=== PATIENT | female | born 1965 | race Caucasian/White ===

== ENCOUNTER 2016-11-27 15:10 | Emergency (ER) | payer BC ==
[2016-11-27] MEDS ORDERED: Sodium Chloride 0.9% 10 ML Syringe FLUSH PRN (15:25)
[2016-11-27] MEDS ORDERED: Sodium Chloride 0.9% 2.5 ML Syringe FLUSH PRN (15:25)
--- NOTE | 2016-11-27 15:25 | EDM.PDOC ---
ED HPI SEIZURE COMPLAINT - General Chief Complaint: Neuro Symptoms/Deficits Stated Complaint: SEIZURE Time Seen by Provider: 11/27/16 15:14 History Limitations: Reports: No limitations - History of Present Illness INITIAL COMMENTS - FREE TEXT/NARRATIVE: History of present illness: [] She presents after a seizure. Patient states that after his seizure she has right leg numbness which she currently has now. Patient was diagnosed in 2012 with brain cancer and began having seizures. Is not had one since 2012. She currently takes Keppra has not had any missed doses, change in dosage, vomiting , diarrhea, headaches or recent illnesses. Patient is followed by Dr. Herrmann in oncology and is currently taking chemotherapy twice a day. He is scheduled to go to [facility] in December. Review of systems: As per history of present illness and below otherwise all systems reviewed and negative. Past medical history: As per history of present illness and as reviewed below otherwise noncontributory. Surgical history: As per history of present illness and as reviewed below otherwise noncontributory. Social history: No reported history of drug or alcohol abuse. Family history: As per history of present illness and as reviewed below otherwise noncontributory. Physical exam: General: Well developed, well nourished in NAD HEENT: Atraumatic, normocephalic, pupils reactive, negative for conjunctival pallor or scleral icterus, mucous membranes moist, throat clear, neck supple, nontender, trachea midline. Lungs: Clear to auscultation, breath sounds equal bilaterally, chest nontender. Heart: S1S2, regular, negative for clicks, rubs, or JVD. Abdomen: Soft, nondistended, nontender. Negative for masses or hepatosplenomegaly. Negative for costovertebral tenderness. Pelvis: Stable nontender. Genitourinary: Deferred. Rectal: Deferred. Extremities: Atraumatic, negative for cords or calf pain. Neurovascular unremarkable. Neuro: Awake, alert, oriented. Cranial nerves II through XII unremarkable. Cerebellum unremarkable. Motor and sensory unremarkable throughout. Exam nonfocal. Diagnostics: [] Labs drawn Keppra levels drawn, results pending Therapeutics: [] Observation-patient's family reported the patient was having a seizure in the room. When I evaluated the patient patient's seizures present as abdominal wall contractions as she is awake and coherent resting a few seconds. This is her fourth episode today. Impression: [] Breakthrough seizures Plan: [] Followup PMD Definitive disposition and diagnosis as appropriate pending reevaluation and review of above. - Related Data Allergies/ADRs: Allergies Allergy/AdvReac Type Severity Reaction Status Date / Time clams Allergy Nausea Verified 11/27/16 15:19 Home Meds: Home Meds Clobetasol [Clobetasol 0.05%] 1 tube .XX ASDIRECTED 11/27/16 [History] Iron 1 mg PO BID 11/27/16 [History] Lisinopril/Hydrochlorothiazide [Lisinopril-Hctz 20-12.5 mg Tab] 1 mg PO BID 09/03 [History] Ondansetron [Zofran ODT] 8 mg PO ASDIRECTED 11/27/16 [History] Sulfamethoxazole/Trimethoprim [Sulfamethoxazole-Tmp Ds Tablet] 800 mg PO ASDIRECTED 11/27/16 [History] Temozolomide [Temodar] 250 mg PO DAILY 11/27/16 [History] levETIRAcetam [Levetiracetam] 750 mg PO BID 11/27/16 [History] ED ROS GENERAL - Review of Systems Review Of Systems: See Below (See history of present illness) - Physical Exam Exam: See Below (See history of present illness) Course - Vital Signs Last Recorded V/S: Last Vital Signs Temp 36.6 C 11/27/16 15:34 Pulse 78 11/27/16 15:34 Resp 20 11/27/16 15:34 BP 136/64 11/27/16 15:34 Pulse Ox 97 11/27/16 15:34 - Orders/Labs/Meds Orders: Active Orders 24 hr Category Date Time Status KYLE [REF] Stat Lab 11/27/16 15:23 Received Sodium Chloride 0.9% [Saline Flush] Med 11/27/16 15:25 Active 10 ml FLUSH ASDIRECTED PRN Sodium Chloride 0.9% [Saline Flush] Med 11/27/16 15:25 Active 2.5 ml FLUSH ASDIRECTED PRN Peripheral IV Insertion Adult [OM.PC] Stat Oth 11/27/16 15:25 Ordered Medication Orders Sodium Chloride (Saline Flush) 10 ml FLUSH ASDIRECTED PRN PRN Reason: Keep Vein Open Sodium Chloride (Saline Flush) 2.5 ml FLUSH ASDIRECTED PRN PRN Reason: Keep Vein Open Labs: Laboratory Tests 11/27/16 11/27/16 Range/Units 15:23 15:23 WBC 7.77 (4.0-11.0) K/uL RBC 4.56 (4.30-5.90) M/uL Hgb 12.4 (12.0-16.0) g/dL Hct 38.8 (36.0-46.0) % MCV 85.1 (80.0-98.0) fL MCH 27.2 (27.0-32.0) pg MCHC 32.0 (31.0-37.0) g/dL RDW Std Deviation 47.0 (28.0-62.0) fl RDW Coeff of Trudy 15 (11.0-15.0) % Plt Count 189 (150-400) K/uL MPV 10.40 (7.40-12.00) fL Neut % (Auto) 66.8 (48.0-80.0) % Lymph % (Auto) 22.0 (16.0-40.0) % [place] % (Auto) 8.2 (0.0-15.0) % Eos % (Auto) 2.7 (0.0-7.0) % Baso % (Auto) 0.3 (0.0-1.5) % Neut # 5.2 (1.4-5.7) K/uL Lymph # 1.7 (0.6-2.4) K/uL [place] # 0.6 (0.0-0.8) K/uL Eos # 0.2 (0.0-0.7) K/uL Baso # 0.0 (0.0-0.1) K/uL Nucleated RBC % 0.0 /100WBC Nucleated RBCs # 0 K/uL Sodium 140 (136-146) mmol/L Potassium 4.1 (3.5-5.1) mmol/L Chloride 105 (98-110) mmol/L Carbon Dioxide 22 (21-31) mmol/L BUN 19 (6.0-23.0) mg/dL Creatinine 0.8 (0.6-1.5) mg/dL Est Cr Clr Drug Dosing 74.86 mL/min Estimated GFR (MDRD) > 60.0 ml/min Glucose 122 H (60-110) mg/dL Calcium 9.6 (8.8-10.8) mg/dL Total Bilirubin 0.5 (0.1-1.5) mg/dL AST 16 (5-40) IU/L ALT 25 (8-54) IU/L Alkaline Phosphatase 78 (40-150) Total Protein 7.7 (6.0-8.0) g/dL Albumin 4.0 (3.5-5.0) g/dL Globulin 3.7 H (2.0-3.5) g/dL Albumin/Globulin Ratio 1.1 L (1.3-2.8) Meds: Medications Generic Name Dose Route Start Last Admin Trade Name Freq PRN Reason Stop Dose Admin Sodium Chloride 10 ml 11/27/16 15:25 Saline Flush FLUSH ASDIRECTED PRN Keep Vein Open Sodium Chloride 2.5 ml 11/27/16 15:25 Saline Flush FLUSH ASDIRECTED PRN Keep Vein Open Discontinued Medications Generic Name Dose Route Start Last Admin Trade Name Freq PRN Reason Stop Dose Admin Lorazepam Confirm 11/27/16 15:37 Ativan Administered 11/27/16 15:38 Dose 2 mg .ROUTE .STK-MED ONE Departure - Departure Time of Disposition: 16:47 Disposition: Home, Self-Care 01 Condition: good Clinical Impression: Breakthrough seizure Referrals: Ousmane Urias MD [Primary Care Provider] - Forms: ED Department Discharge Additional Instructions: The following information is given to patients seen in the emergency department who are being discharged to home. This information is to outline your options for follow-up care. We provide all patients seen in our emergency department with a follow-up referral. The need for follow-up, as well as the timing and circumstances, are variable depending upon the specifics of your emergency department visit. If you don't have a primary care physician on staff, we will provide you with a referral. We always advise you to contact your personal physician following an emergency department visit to inform them of the circumstance of the visit and for follow-up with them and/or the need for any referrals to a consulting specialist. The emergency department will also refer you to a specialist when appropriate. This referral assures that you have the opportunity for follow-up care with a specialist. All of these measure are taken in an effort to provide you with optimal care, which includes your follow-up. Under all circumstances we always encourage you to contact your private physician who remains a resource for coordinating your care. When calling for follow-up care, please make the office aware that this follow-up is from your recent emergency room visit. If for any reason you are refused follow-up, please contact the Emergency Department at and asked to speak to the emergency department charge nurse. Continue regular medications Followup primary care physician or Dr. Herrmann. Primary Care [address] [place] [id number] - My Orders Last 24 Hours: My Active Orders 11/27/16 15:23 KEPPRA [REF] Stat 11/27/16 15:25 Sodium Chloride 0.9% [Saline Flush] 10 ml FLUSH ASDIRECTED PRN Sodium Chloride 0.9% [Saline Flush] 2.5 ml FLUSH ASDIRECTED PRN Peripheral IV Insertion Adult [OM.PC] Stat - Assessment/Plan Last 24 Hours: My Active Orders 11/27/16 15:23 KEPPRA [REF] Stat 11/27/16 15:25 Sodium Chloride 0.9% [Saline Flush] 10 ml FLUSH ASDIRECTED PRN Sodium Chloride 0.9% [Saline Flush] 2.5 ml FLUSH ASDIRECTED PRN Peripheral IV Insertion Adult [OM.PC] Stat
[2016-11-27] MEDS ORDERED: LORazepam 2 MG/ML MDV ONE (15:37)
[2016-11-27 16:06] LABS: CHLORIDE,CL 105 mmol/L (98-110); SODIUM,NA 140 mmol/L (136-146)
[2016-11-27 17:06] VITALS: BP 122/58
== END 2016-11-27 17:02 | disposition home or self-care (01) ==
LOC: MW.ED 15:10
DX: G40.909 Epilepsy, unspecified, not intractable, without status epilepticus (principal); Z79.899 Other long term (current) drug therapy; Z91.09 Other allergy status, other than to drugs and biological substances
CPT/HCPCS: 80053; 80177; 85025; 99284

== ENCOUNTER → 2016-11-29 | Outpatient (CLI) | payer BC ==
[~2016-11-29] MED LIST: Gadobutrol 10 mMOL/10 ML SDV IVPUSH STA
--- NOTE | 2016-12-01 12:53 | MR ---
EXAM DATE: 11/29/16 PATIENT'S AGE: 51 Patient: JACEY DIAS Facility: [facility] Site . Site : 1965 Study: MRI-Head W/ and W/O Cont [id number]/2017 7:48:42 PM Ordering Physician: Montez Coronel Final Report: Indication: 51-year-old female. Malignant brain tumor. Technique: Multiplanar T1, T2 axial, FLAIR axial, diffusion axial, ADC map axial, susceptibility weighted axial and 3 plane postcontrast T1 weighted images are acquired. Comparison: MRI June 15, 2016. Findings: There is new enhancing restricted diffusion situated at the dome of the left occipital trigone. There is no restricted diffusion to suggest recent ischemia or infarction. Subcortical foci of susceptibility in the left cerebral hemisphere, anterior left centrum semiovale, right major forceps and right gnosticism white matter unchanged. Cerebral white matter T2 prolongation, most notable left frontal parietal distribution at the left thalamus and mesial left temporal lobe has not significantly changed. There is new nodular enhancement in the paramedian left parietal lobe measuring between 1.5 x 1.6 cm in diameter. New, nodular enhancement is situated in the left centrum semiovale, mesial right thalamus and right major forceps. There is new ependymal enhancement at the mesial aspect of the right occipital horn with no enhancement signal in the region of the right fornix. For example postcontrast coronal images number 44 through 35 and postcontrast sagittal images numbers 32 through 28. Basal cisterns are intact. Brainstem and cerebellum are normal. Cerebellar tonsillar saturated optic chiasm and pituitary are normal. Bubbly secretions are noted in the right maxillary sinus. Mucosal thickening and minimal fluid in the left maxillary sinus. Trace effusions are at the mastoid tips. Usual flow void is present in the [place] of [place]. Infraorbital tissues are normal. Left parietal orville hole and left parietal biopsy cavity are unchanged Impression: 1. T2 prolongation in the cerebral hemispheres is unchanged in distribution. 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 2. New, nodular, intra-axial enhancement in the paramedian left parietal lobe. New nodular enhancement in the left centrum semiovale, right major forceps and mesial right thalamus. New enhancing subependymal tissue along medial aspect of the right occipital trigone with pathologic enhancement sweeping through the distribution of right fornix. New enhancement is suggestive of tumor progression. Restricted diffusion associated with enhancing tissue at the dome of the left occipital trigone is suggestive of densely cellular tissue. 3. Left parietal orville hole and right there the left parietal biopsy cavities are unchanged. Dictated by Stef Bettencourt MD @ Nov 30 2016 5:18PM Signed by: Stef Bettencourt MD @11/30/2016 5:18:38 PM (Electronic Signature) Report Signed by Proxy and Original Signed Document filed in the Medical Record. MTDD
== END ==
LOC: MW.MRI 18:29
PROVIDERS: ATTEND Internal Medicine Hematology & Oncology
DX: C71.9 Malignant neoplasm of brain, unspecified (principal)
CPT/HCPCS: 70553; A9585

== ENCOUNTER → 2017-01-02 | Outpatient (CLI) | payer BC ==
[~2017-01-02] MED LIST changes: -Gadobutrol 10 mMOL/10 ML SDV IVPUSH STA; +Gadobutrol 7.5 mMOL/7.5 ML SDV IVPUSH STA
--- NOTE | 2017-01-03 11:00 | MR ---
EXAM DATE: 01/02/17 PATIENT'S AGE: 51 Patient: JACEY DIAS Facility: [place], [place] Site . Site : 1965 Study: MRI Head W/ and W/O Cont [id number]/17/2017 7:54:57 PM Ordering Physician: Montez Coronel Final Report: Indication: 51-year-old female. Malignant brain tumor. Prior study show evidence of prior left parietal biopsy, however tumor histology is not provided. Memory "issues." Technique: Multiplanar acquisitions including T1 weighted, T2 weighted, FLAIR, diffusion weighted, ADC map, susceptibility weighted and postcontrast T1 weighted images acquired. Comparison: MRI November 29, 2013. Findings: There is increasing tumor burden with restricted diffusion and enhancement in previously described distributions. Tumor shows zones of restricted diffusion. Tumor mass in the paramedian left parietal lobe is less avidly enhancing measuring approximately 2.2 x 2.2 x 3.0 cm (length by width by height). There is increasing tumor within central cystic or necrotic change situated in the posterior left centrum semiovale extending inferiorly into the posterior aspect of the left lentiform nucleus. There is increasing tumor in the posterior aspect the left thalamus extending into the mesial left temporal lobe along the dome of the left temporal horn with and sparing of the left hippocampus. Previously noted focus of enhancement at the dome of the right thalamus is larger now measuring approximately 8 mm. Amorphous zones of enhancement in the high left centrum semiovale are less avidly enhancing without increase in size. There is a new punctate subcortical focus of enhancement at the dome of the left insula. There is increasing tumor burden in the right major forceps with findings suggest extension along the interventricular septum with increasing tumor in the right calcar lobito encasing the right occipital horn with increasing tumor burden at the dome of the right thalamus. Mild effacement of the left occipital trigone is slightly greater. There is minimal left right midline shift. Patchy white matter T2 prolongation in the cerebral hemispheres is slightly greater. Subtle, nonenhancing T2 prolongation in the left midbrain and justin is more conspicuous. Cerebellar hemispheres are unremarkable. Cerebellar tonsils are normally situated. Optic chiasm and pituitary are normal. Paranasal and mastoid air cells are clear. Usual flow void is present in the [place] of [place]. Left parietal bone orville hole and biopsy track again noted. Impression: 1. Increasing multifocal tumor burden detailed above with increasing left hemisphere mass effect causing effacement of the left lateral ventricle with minimal [id number] midline shift. Left parietal orville hole and biopsy tract are again noted. Biopsy tract that appears to lie anterior to the enhancing component left parietal mass. Considerations are included are unchanged include processes such is multifocal glioma and primary [employer] lymphoma. Correlation with results of biopsy is suggested. 2. No hydrocephalus. 3. Dictated by Stef Bettencourt MD @ Jan 03 2017 8:08AM (Electronic Signature) Report Signed by Proxy and Original Signed Document filed in the Medical Record. MTDD
== END ==
LOC: MW.MRI 18:40
PROVIDERS: ATTEND Internal Medicine Hematology & Oncology
DX: C71.9 Malignant neoplasm of brain, unspecified (principal)
CPT/HCPCS: 70553; A9585